=== PATIENT | female | born 2000 | race Caucasian/White ===

== ENCOUNTER 2024-09-07 13:50 | Emergency (ER) | payer MEDICAID, SELFPAY ==
[2024-09-07 13:51] VITALS: BMI 37.5
[2024-09-07 14:28] VITALS: BP 143/99; PULSE 87; RESP 18; TEMP 36.9; O2SAT 99
--- NOTE | 2024-09-07 14:48 | PD.EDADULT ---
ED General RME/HPI General Chief complaint: General Adult/Misc Complain Stated complaint: NEEDS LAB FOR THYROID, CALCIUM LEVEL LOW Time Seen by Provider: 09/07/24 14:34 Source: patient Arrival date/time: 09/07/24 13:50 24-year-old female presents to the emergency department and request for lab draw due to possible low calcium. Patient has a lab slip with her that was given by her PCP patient was unable to get her lab drawn outpatient here for lab draw. Denies any other concerns Related Data Home Medications ?Medication ?Instructions ?Recorded ?Confirmed amitriptyline 25 mg tablet 25 mg PO HS 01/31/24 01/31/24 Held on 01/31/24. Instructions: Resume on 02/01/24. cyclobenzaprine 5 mg tablet 5 mg PO TID 01/31/24 01/31/24 Held on 01/31/24. Instructions: Resume on 02/01/24. furosemide 40 mg tablet 40 mg PO QDAY 01/31/24 01/31/24 gabapentin 300 mg capsule 300 mg PO BID 01/31/24 01/31/24 Held on 01/31/24. Instructions: Resume on 02/01/24. hydroxyzine HCl 25 mg tablet 25 mg PO TID 01/31/24 01/31/24 lamotrigine 25 mg tablet,extended 25 mg PO HS 01/31/24 01/31/24 release 24 hr meloxicam 15 mg tablet 15 mg PO QDAY 01/31/24 01/31/24 ondansetron HCl 8 mg tablet 8 mg PO QID 01/31/24 01/31/24 pantoprazole 40 mg tablet,delayed 40 mg PO QDAY 01/31/24 01/31/24 release (Protonix) tranexamic acid 650 mg tablet 1,300 mg PO TID 01/31/24 01/31/24 Previous Rx's ?Medication ?Instructions ?Recorded methotrexate (PF) 30 mg/0.6 mL 94 mg (1.88 mL) subcut .once #1.88 05/02/24 subcutaneous auto-injector mL methotrexate sodium 25 mg/mL 94 mg (3.76 mL) subcut .once #10 mL 05/02/24 injection solution methotrexate sodium 25 mg/mL 94 mg (3.76 mL) subcut .once #3.76 05/03/24 injection solution mL Allergies Allergy/AdvReac Type Severity Reaction Status Date / Time Gadolinium-Containing Allergy Severe Itching Verified 09/07/24 13:53 Contrast Medi adhesive tape Allergy Intermediate REDNESS, Verified 09/07/24 13:53 ITCHING, SKIN BLISTERS latex Allergy Intermediate REDNESS,ITCHING,THROAT Verified 09/07/24 13:53 SWELLING,DIFF. BREATHING Penicillins Allergy Unknown Verified 09/07/24 13:53 Sulfa (Sulfonamide Allergy Swelling Verified 09/07/24 13:53 Antibiotics) of Lip/Tongue/Throat Review of Systems Review of Systems Systems Reviewed: All systems reviewed, normal except as documented Narrative Review of Systems: Gen: No fever, no chills, no weight loss EYES: No discharge, no visual changes, no pain HEENT: No ear pain, no congestion, no sore throat PULM: No shortness of breath, no cough, no congestion CV: No chest pain, no dyspnea on exertion, no palpitations GI: No nausea, no vomiting, no diarrhea, no pain, no constipation : No frequency, no urgency,? no dysuria Musc/skel: No joint pain, no back pain Skin: No rash? ED Exam Narrative Physical exam: General: Sittiing in Exam table in no acute distress, answering questions appropriately HENT: normocephalic, atraumatic, EOMI, PERRLA, moist mucous membranes Chest: chest wall is nontender Cardiac: regular rate and rhythm, normal S1 and S2, no murmurs, rubs, or gallops, capillary refill ?2 seconds Pulmonary: clear to auscultation bilaterally, no wheezing, crackles, or rhonchi Abdominal: active bowel sounds, soft, nontender, nondistended Neuro: A&OX3, CN II-XII intact, sensation grossly intact bilaterally in UE and LE. Skin: no rashes, no ecchymosis Ext: no lower extremity edema Course Quality Measures none Orders Category Date Time Status CBC Stat Lab 09/07/24 15:11 Completed CMP [Comprehensive Metabolic Panel] Stat Lab 09/07/24 15:11 Completed Free T4 (Free Thyroxine) Stat Lab 09/07/24 15:11 Completed Phosphorous Stat Lab 09/07/24 15:11 Completed TSH [Thyroid Stimulating Hormone] Stat Lab 09/07/24 15:11 Completed Vital Signs Vital signs: Vital Signs Temperature 98.4 F 09/07/24 14:28 Pulse Rate 87 09/07/24 14:28 Respiratory Rate 18 09/07/24 14:28 Blood Pressure 143/99 H 09/07/24 14:28 Pulse Oximetry (%) 99 09/07/24 14:28 Oxygen Delivery Method Room Air 09/07/24 14:28 [facility] Patient data External records reviewed:: [facility] previous records Clinical information provided by:: patient Social determinants that could affect healthcare access:: none Patient has the following chronic illnesses:: none How is presenting disease/condition affected by chronic disease/condition?: no chronic disease Evaluation data The following diagnostics were reviewed and interpreted by me:: lab results Lab and/or radiology exams considered but not ordered:: none Interpretation Summary: No severe hypoglycemia patient labs handed to patient she will follow-up with her director of clinical trials. Medications Medications considered but not ordered:: none Medication administrations:: none Consultations Consultation(s) initiated? (list below): No Diagnosis Differential Diagnosis ED Complaint MDM: Hypocalcemia, lecture light imbalance, hypothyroidism. Most likely diagnosis given after review of the tests above:: Routine lab draw Admission Indicated Admission indicated?: not indicated Explain why admission is indicated or not indicated:: none Admission Request Was there a request for admission?: No Disposition Plan Disposition Plan: Discharge Discharge Attestation Discharge Attestation: The patient and all family members were given an opportunity to ask questions and understood the discharge instructions. Discharge instructions specifically effects, indications for sooner follow up or return to the emergency department, and the expected course of current diagnosis. Patient condition: Stable Medical Decision Making Differential Diagnosis Differential Diagnosis: Hypocalcemia, lecture light imbalance, hypothyroidism. Lab Data 09/07/24 15:11 09/07/24 15:11 Labs: Lab Results 09/07/24 Range/Units 15:11 WBC 6.3 (3.6-11.0) Thou/mm3 RBC 4.00 (4.00-5.20) Miln/mm3 Hgb 10.2 L (12.0-16.0) g/dL Hct 32.2 L (36.0-46.0) % MCV 81 (80-100) fL MCH 25.5 (25.0-35.0) pg MCHC 31.7 (31.0-37.0) g/dl RDW Std Deviation 42.2 (36.4-46.3) fL Plt Count 205 (140-440) Thou/mm3 Neut % (Auto) 61 (37-80) % Lymph % (Auto) 30 (10-50) % Russell % (Auto) 6 (0-12) % Eos % (Auto) 2 (0-10) % Baso % (Auto) 0 (0-2.5) % Neut # (Auto) 3.9 (1.8-7.7) Thou/mm3 Lymph # (Auto) 1.9 (1.0-4.8) Thou/mm3 Russell # (Auto) 0.4 (0.0-0.8) Thou/mm3 Eos # (Auto) 0.1 (0.0-0.5) Thou/mm3 Baso # (Auto) 0.0 (0.0-0.2) Thou/mm3 Immature Gran # (Auto) 0.02 H (0.00-0.00) Thou/mm3 Absolute Nucleated RBC 0.00 (0.00-0.00) Thou/mm3 Immature Gran % 0 (0-0) % Nucleated RBC % 0 (0) /100 WBC Sodium 141 (136-145) mMol/L Potassium 4.2 (3.4-5.1) mMol/L Chloride 108 H (98-107) mMol/L Carbon Dioxide 24.7 (20.0-31.0) mMol/L Anion Gap 8 (7-16) BUN 14 (9-23) mg/dL Creatinine 0.7 (0.6-1.3) mg/dL Estim Creat Clear Calc 129.3 (>60) mL/min eGFR > 60 (60 - ) See Note BUN/Creatinine Ratio 20 (12-20) Ratio Glucose 84 (74-106) mg/dL Calculated Osmolality 280 (275-295) Calcium 8.2 L (8.3-10.6) mg/dL Corrected Calcium 8.2 L (8.5-10.1) mg/dL Phosphorus 4.5 (2.4-5.1) mg/dL Total Bilirubin 0.2 L (0.3-1.2) mg/dL AST 14 (0-34) U/L ALT 14 (10-49) U/L Alkaline Phosphatase 58 (46-116) U/L Total Protein 7.0 (5.7-8.2) gm/dL Albumin 4.4 (3.5-5.0) gm/dL Globulin 2.6 (2.3-3.5) gm/dL Albumin/Globulin Ratio 1.7 (1.2-2.2) TSH 0.80 (0.55-4.78) uIU/mL Free T4 1.50 (0.89-1.76) ng/dL Discharge Plan Plan Patient Disposition: HOME (Self Care) Patient condition on transfer: Stable Prescriptions/Referrals Prescriptions/Med Rec: No Action furosemide 40 mg tablet 40 mg PO QDAY Patient Comments: TAKE 1 TABLET BY MOUTH ONCE DAILY meloxicam 15 mg tablet 15 mg PO QDAY Patient Comments: TAKE 1 TABLET BY MOUTH ONCE DAILY NEEDED FOR PAIN (ALSO TAKE DURING YOUR PERIOD TO MAKE IT TECHNICAL SERVICES ASSISTANT) amitriptyline 25 mg tablet 25 mg PO HS Patient Comments: TAKE 1 TABLET BY MOUTH ONCE DAILY gabapentin 300 mg capsule 300 mg PO BID Patient Comments: TAKE 1 CAPSULE BY MOUTH IN THE MORNING ,1 CAPSULE AT NOON, AND 2 CAPSULES AT BEDTIME hydroxyzine HCl 25 mg tablet 25 mg PO TID Patient Comments: TAKE 1 TABLET BY MOUTH THREE TIMES DAILY NEEDED FOR ITCHING OR SLEEPING DIFFICULTIES cyclobenzaprine 5 mg tablet 5 mg PO TID Patient Comments: TAKE 1 TO 2 TABLETS BY MOUTH THREE TIMES DAILY NEEDED FOR MUSCLE RELAXATION lamotrigine 25 mg tablet extended release 24hr 25 mg PO HS Patient Comments: TAKE 1 TABLET BY MOUTH ONCE DAILY tranexamic acid 650 mg Tablet 1,300 mg PO TID pantoprazole [Protonix] 40 mg tablet,delayed release (DR/EC) 40 mg PO QDAY ondansetron HCl 8 mg Tablet 8 mg PO QID methotrexate (PF) 30 mg/0.6 mL auto-injector 94 mg subcut .once Qty: 1.88 0RF Rx Instructions: pls give IM methotrexate sodium 25 mg/mL solution 94 mg subcut .once Qty: 10 0RF Rx Instructions: Give IM methotrexate sodium 25 mg/mL solution 94 mg subcut .once Qty: 3.76 0RF Rx Instructions: pls give IM Referrals: Angel Menard MD [Primary Care Provider] - In 1 week Problem List Clinical Impression: Routine lab draw, Hypocalcemia Patient/Caregiver Discharge Instructions Discharge Activity: activity as tolerated Education Materials: Discharge Instructions for ..., ED Hypocalcemia (Adult) Additional Instructions: - Your labs were drawn You received a copy. Your calcium is point low -folLow up with your primary doctor Return to emergency department this any worsening symptoms any condition Print Language: Maltese Stand Alone Forms: [employer] Award Info., Patient Portal Info Letter PA/CHEMICAL SALES REPRESENTATIVE Supervising Physician PA/CHEMICAL SALES REPRESENTATIVE Supervising Physician: Dr. Morin
[2024-09-07 15:34] LABS: Basophils % (Auto) 0 % (0-2.5); Eosinophils # (Auto) 0.1 Thou/mm3 (0.0-0.5); Eosinophils % (Auto) 2 % (0-10); Hematocrit 32.2 % (36.0-46.0); Hemoglobin 10.2 g/dL (12.0-16.0); Immature Granulocytes % (Auto) 0 % (0-0); Immature Granulocytes Auto 0.02 Thou/mm3 (0.00-0.00); Lymphocytes # (Auto) 1.9 Thou/mm3 (1.0-4.8); Lymphocytes % (Auto) 30 % (10-50); Mean Corpuscular HGB Conc 31.7 g/dl (31.0-37.0); Mean Corpuscular Hemoglobin 25.5 pg (25.0-35.0); Mean Corpuscular Volume 81 fL (80-100); Monocytes # (Auto) 0.4 Thou/mm3 (0.0-0.8); Monocytes % (Auto) 6 % (0-12); Neutrophils # (Auto) 3.9 Thou/mm3 (1.8-7.7); Neutrophils % (Auto) 61 % (37-80); Nucleated Red Blood Cell % 0 /100 WBC (0); Platelet Count 205 Thou/mm3 (140-440); RDW Standard Deviation 42.2 fL (36.4-46.3); White Blood Count 6.3 Thou/mm3 (3.6-11.0)
[2024-09-07 15:55] LABS: Alanine Aminotransferase 14 U/L (10-49); Albumin, Serum 4.4 gm/dL (3.5-5.0); Albumin/Globulin Ratio 1.7 (1.2-2.2); Alkaline Phosphatase 58 U/L (46-116); Anion Gap 8 (7-16); Aspartate Amino Transferase 14 U/L (0-34); BUN/Creatinine Ratio 20 Ratio (12-20); Bilirubin,Total 0.2 mg/dL (0.3-1.2); Blood Urea Nitrogen 14 mg/dL (9-23); Calcium 8.2 mg/dL (8.3-10.6); Calcium (Corrected) 8.2 mg/dL (8.5-10.1); Carbon Dioxide 24.7 mMol/L (20.0-31.0); Chloride 108 mMol/L (98-107); Creatinine (Component) 0.7 mg/dL (0.6-1.3); Estimated Creatinine Clearance 129.3 mL/min (>60); Globulin 2.6 gm/dL (2.3-3.5); Glucose 84 mg/dL (74-106); Osmolality,Calculated 280 (275-295); Phosphorous 4.5 mg/dL (2.4-5.1); Potassium 4.2 mMol/L (3.4-5.1); Sodium 141 mMol/L (136-145); eGFR > 60 See Note
== END 2024-09-07 16:37 | disposition home or self-care (01) ==
PROVIDERS: Nurse Practitioner Primary Care; Emergency Provider Emergency Medicine; PCP Obstetrics & Gynecology
DX: E83.51 Hypocalcemia (principal)
CPT/HCPCS: 36415; 80053; 84100; 84439; 84443; 85025; 99283

== ENCOUNTER 2024-09-19 18:03 | Emergency (ER) | payer MEDICAID, SELFPAY ==
--- NOTE | 2024-09-19 18:30 | EKG_ITS ---
[facility] Test Date: 2024-09-19 Pat Name: OSVALDO MANNING Department: Room: - Gender: Female Calibration Laboratory Technician: : 2000 Requested By: Santy Fierro Order Number: [id number] Reading MD: Santy Fierro Measurements Intervals [place] Rate: 94 P: 57 WA: 131 QRS: 40 QRSD: 88 T: 41 QT: 376 QTc: 472 Interpretive Statements SINUS RHYTHM No previous ECG available for comparison /store/S0/[id number]/[id number].pdf
[2024-09-19 19:07] VITALS: BP 146/79; PULSE 95; RESP 18; TEMP 36.7; O2SAT 99; BMI 38.4
--- NOTE | 2024-09-19 19:24 | XR_ITS ---
Examination: CT brain head without contrast. 2-D sagittal coronal reconstructions Date and time of exam:September 19, 2024 10:51 PM Indications: Syncopal episode today CTDI: vol (mGy):48.9 DLP: (mGycm):932 Technique: Multiple CT axial sections of the brain have been obtained, 5 mm slice thickness. Contrast has not been administered. 2-D sagittal, coronal reconstructions have been obtained Low dose protocols were performed. One or more of the following dose reduction techniques were used; automated exposure control, adjustment of the mA and/or KV according to patient size, use of iterative reconstruction technique. Findings: No significant ventricular enlargement. Intra-axial or extra-axial hemorrhage density is not seen. No mass effect or midline shift Basal cisterns are not remarkable. Fourth ventricle is midline. Cranial vault intact. Impression: Negative for acute hemorrhage, mass effect or midline shift Advise clinical correlation follow-up accordingly
--- NOTE | 2024-09-19 19:24 | XR_ITS ---
Examination: PA chest single view Technique: Upright PA chest single view Exam date and time: September 19, 2024 1749 hrs. Indication: Syncopal episode today. Findings: Normal heart size. Lungs are clear. The osseous structures are intact Impression: No active disease
--- NOTE | 2024-09-19 19:24 | XR_ITS ---
Examination: CT brain head with contrast. 2-D sagittal coronal reconstructions were 7.9 Date and time of exam:September 19, 2024 10:51 PM Indications: Syncopal episodes today CTDI: vol (mGy): 47.9 DLP: (mGycm):982 Technique: Multiple CT axial sections of the brain have been obtained, 5 mm slice thickness. Contrast has not been administered. 2-D sagittal, coronal reconstructions have been obtained Low dose protocols were performed. One or more of the following dose reduction techniques were used; automated exposure control, adjustment of the mA and/or KV according to patient size, use of iterative reconstruction technique. Findings: No significant ventricular enlargement. Intra-axial or extra-axial hemorrhage density is not seen. No mass effect or midline shift Basal cisterns are not remarkable. Fourth ventricle is midline. Cranial vault intact. Right maxillary sinusitis No abnormal enhancement Impression: Negative for acute hemorrhage, mass effect or midline shift
--- NOTE | 2024-09-19 19:25 | EDRME_ITS ---
Rapid Medical Screening Exam RME Arrival date/time: 09/19/24 18:03 24F with extensive PMH including undiagnosed syncopal disorder, thyroid cancer (resection done 2 weeks ago), PCOS and psych presents to ED with 15+ syncopal episodes per day since she had her thyroid surgery. Patient states she has had this syncopal disorder prior to surgery but they only occurred 1-2x per day vs 15+. Patient was supposed to get CT head w/wo contrast today outpatient, but PCP (Dr. Menard) who ordered it filled out the prior auth wrong so fingerprint technician refused to do it. Note, patient has had MRI w/ contrast before and is fine as long as steroids are given prior to contrast injection. Patient still wants CT done today even though she was advised MRI would like be more helpful. Separately, patient notes she's had a sore throat for several days. Patient was told she has strep 1 month ago w/o any testing. Chief Complaint: Syncope / Near Syncope Vital signs: Vital Signs Temperature 98.1 F 09/19/24 19:07 Pulse Rate 95 09/19/24 19:07 Respiratory Rate 18 09/19/24 19:07 Blood Pressure 146/79 H 09/19/24 19:07 Pulse Oximetry (%) 99 09/19/24 19:07 Oxygen Delivery Method Room Air 09/19/24 19:07
[2024-09-19 20:15] LABS: Basophils % (Auto) 0 % (0-2.5); Eosinophils # (Auto) 0.1 Thou/mm3 (0.0-0.5); Eosinophils % (Auto) 1 % (0-10); Hematocrit 32.3 % (36.0-46.0); Hemoglobin 10.5 g/dL (12.0-16.0); Immature Granulocytes % (Auto) 0 % (0-0); Immature Granulocytes Auto 0.01 Thou/mm3 (0.00-0.00); Lymphocytes # (Auto) 2.4 Thou/mm3 (1.0-4.8); Lymphocytes % (Auto) 27 % (10-50); Mean Corpuscular HGB Conc 32.5 g/dl (31.0-37.0); Mean Corpuscular Hemoglobin 25.6 pg (25.0-35.0); Mean Corpuscular Volume 79 fL (80-100); Monocytes # (Auto) 0.5 Thou/mm3 (0.0-0.8); Monocytes % (Auto) 6 % (0-12); Neutrophils # (Auto) 5.9 Thou/mm3 (1.8-7.7); Neutrophils % (Auto) 66 % (37-80); Nucleated Red Blood Cell % 0 /100 WBC (0); Platelet Count 201 Thou/mm3 (140-440)
[2024-09-19 20:28] LABS: Parathyroid Hormone Intact 22.8 pg/ml (18.5-88.0)
[2024-09-19 20:41] LABS: Alanine Aminotransferase 13 U/L (10-49); Albumin, Serum 4.5 gm/dL (3.5-5.0); Albumin/Globulin Ratio 1.7 (1.2-2.2); Alkaline Phosphatase 68 U/L (46-116); Anion Gap 8 (7-16); Aspartate Amino Transferase 17 U/L (0-34); BUN/Creatinine Ratio 20 Ratio (12-20); Bilirubin,Total 0.3 mg/dL (0.3-1.2); Blood Urea Nitrogen 12 mg/dL (9-23); Calcium 7.6 mg/dL (8.3-10.6); Calcium (Corrected) 7.6 mg/dL (8.5-10.1); Carbon Dioxide 25.4 mMol/L (20.0-31.0); Chloride 107 mMol/L (98-107); Creatinine (Component) 0.6 mg/dL (0.6-1.3); Estimated Creatinine Clearance 152.9 mL/min (>60); Globulin 2.7 gm/dL (2.3-3.5); Glucose 90 mg/dL (74-106); Magnesium 1.8 mg/dL (1.6-2.6); Osmolality,Calculated 279 (275-295); Potassium 3.3 mMol/L (3.4-5.1); Sodium 140 mMol/L (136-145); Total Protein 7.2 gm/dL (5.7-8.2); Troponin I < 0.002 ng/mL (0.0-0.045); eGFR > 60 See Note
[2024-09-19 21:39] LABS: Strep A Rapid Negative (Negative)
[2024-09-19 22:02] LABS: Collection Type, Urine Clean Catch
[2024-09-19 22:42] LABS: Bilirubin,Urine Negative (Negative); Blood,Urine Negative (Negative); Clarity,Urine Clear (Clear/Hazy); Color,Urine Yellow (Lt Yel-Yel); Glucose, Urine Negative (Negative); Ketones,Urine Negative (Negative); Leukocyte Esterase,Urine Positive (Negative); Nitrite,Urine Negative (Negative); PH,Urine 6.5 (5.0-7.0); Protein,Urine 1+ (Neg - Trace); RBC,Urine 2 /hpf (0-3); Specific Gravity,Urine 1.034 (1.001-1.035); Squamous Epithelial Cell,Urine 14 /hpf (0-5); WBC,Urine 3 /hpf (0-5)
[2024-09-19 22:44] LABS: HCG Qualitative,Urine Negative
[2024-09-19 22:50] LABS: Amphetamine/Methamp Scrn,U Negative (Negative); Barbiturate Screen,Urine Negative (Negative); Benzodiazepines Screen,Urine Negative (Negative); Benzoylecgonine Screen, Ur Negative (Negative); Fentanyl Screen,Urine Negative (Negative); Opiate Screen,Urine Positive (Negative); THC Screen,Urine Positive (Negative)
--- NOTE | 2024-09-20 00:47 | PD.EDSYNC ---
ED Syncope RME/HPI General Chief Complaint: Syncope / Near Syncope Stated Complaint: Syncope today X 15 Arrival date/time: 09/19/24 18:03 RME / HPI RME / HPI narrative: 09/19/24 18:03 24F with extensive PMH including undiagnosed syncopal disorder, thyroid cancer (resection done 2 weeks ago), PCOS and psych presents to ED with 15+ syncopal episodes per day since she had her thyroid surgery. Patient states she has had this syncopal disorder prior to surgery but they only occurred 1-2x per day vs 15+. Patient was supposed to get CT head w/wo contrast today outpatient, but PCP (Dr. Menard) who ordered it filled out the prior auth wrong so business technology architect refused to do it. Note, patient has had MRI w/ contrast before and is fine as long as steroids are given prior to contrast injection. Patient still wants CT done today even though she was advised MRI would like be more helpful. Separately, patient notes she's had a sore throat for several days. Patient was told she has strep 1 month ago w/o any testing. Dr. Stoddard?s Main ED Evaluation: 24yo female with a history of thyroid CA s/p resection presents to the ED for a chief complaint of syncope. Patient states she used to have 2-3 syncopal episodes a week prior to getting her thyroid removed 2 weeks ago, but endorses she has been having 15-20 episodes per day since the surgery. Patient states she zones out and does not know how much time passes . She denies any falls or injuries. She denies any other associated symptoms. Related Data Home Medications ?Medication ?Instructions ?Recorded ?Confirmed amitriptyline 25 mg tablet 25 mg PO HS 01/31/24 01/31/24 Held on 01/31/24. Instructions: Resume on 02/01/24. cyclobenzaprine 5 mg tablet 5 mg PO TID 01/31/24 01/31/24 Held on 01/31/24. Instructions: Resume on 02/01/24. furosemide 40 mg tablet 40 mg PO QDAY 01/31/24 01/31/24 gabapentin 300 mg capsule 300 mg PO BID 01/31/24 01/31/24 Held on 01/31/24. Instructions: Resume on 02/01/24. hydroxyzine HCl 25 mg tablet 25 mg PO TID 01/31/24 01/31/24 lamotrigine 25 mg tablet,extended 25 mg PO HS 01/31/24 01/31/24 release 24 hr meloxicam 15 mg tablet 15 mg PO QDAY 01/31/24 01/31/24 ondansetron HCl 8 mg tablet 8 mg PO QID 01/31/24 01/31/24 pantoprazole 40 mg tablet,delayed 40 mg PO QDAY 01/31/24 01/31/24 release (Protonix) tranexamic acid 650 mg tablet 1,300 mg PO TID 01/31/24 01/31/24 Previous Rx's ?Medication ?Instructions ?Recorded methotrexate (PF) 30 mg/0.6 mL 94 mg (1.88 mL) subcut .once #1.88 05/02/24 subcutaneous auto-injector mL methotrexate sodium 25 mg/mL 94 mg (3.76 mL) subcut .once #10 mL 05/02/24 injection solution methotrexate sodium 25 mg/mL 94 mg (3.76 mL) subcut .once #3.76 05/03/24 injection solution mL Allergies Allergy/AdvReac Type Severity Reaction Status Date / Time Gadolinium-Containing Allergy Severe Itching Verified 09/07/24 13:53 Contrast Medi adhesive tape Allergy Intermediate REDNESS, Verified 09/07/24 13:53 ITCHING, SKIN BLISTERS latex Allergy Intermediate REDNESS,ITCHING,THROAT Verified 09/07/24 13:53 SWELLING,DIFF. BREATHING Penicillins Allergy Unknown Verified 09/07/24 13:53 Sulfa (Sulfonamide Allergy Swelling Verified 09/07/24 13:53 Antibiotics) of Lip/Tongue/Throat Review of Systems Review of Systems Systems Reviewed: All systems reviewed, normal except as documented Past Medical History Past Medical History CARDIAC: Positive Hypercholesterolemia (CONTROL WITH DIET CHANGES) and Hypertension (CONTROL WITH DIET CHANGES); Negative Cardiac Disorders or Congestive Heart Failure RESPIRATORY: Negative Chronic Obstructive Pulmonary Disease (COPD) or Asthma GASTROINTESTINAL: Positive Gastrointestinal Disorders (gastroparesis), Hiatal Hernia and Gastroesophageal Reflux Disease GENITOURINARY: Positive Kidney Stones (ALSO HX OF BLADDER STONES); Negative Renal Disease REPRODUCTIVE: Positive Previous Pregnancies MUSCULOSKELETAL: Positive Arthritis and Fibromyalgia ENDOCRINE: Positive Endocrine Disorders (hashimotos); Negative Diabetes Mellitus Type 1 or Diabetes Mellitus Type 2 HEMATOLOGIC: Positive Blood Disorders ([place] DISEASE); Negative Sickle Cell Disease PSYCHO/SOCIAL: Positive Depression and Anxiety OTHER HISTORY: Positive Hospitalization (october 2023); Negative Down Syndrome, Developmental Delay, Falls, Blood Transfusions or Anesthesia Reactions Family History FAMILY HISTORY: Positive Family Cancer (PATERNAL GRANDFATHER SKIN CA) Surgical History SURGICAL: Positive Section (october 2023) Social History SMOKING STATUS: Never smoker ED Exam Narrative Physical exam: GENERAL APPEARANCE: alert and oriented x 4, well-developed, well-nourished, no acute distress VITALS: All vitals were reviewed and the pulse ox is 99% on room air, which is normal according to my interpretation. HEENT: Normocephalic, atraumatic; pupils equal, round, reactive to light; EOMI; mucous membranes pink, moist; oropharynx clear NECK: Supple LUNGS: CTABL; no wheezes, no rales, no rhonchi HEART: Regular rate, regular rhythm; normal S1, S2; no murmurs ABDOMEN: non distended; normal BS; soft, no tenderness, no guarding, no rebound; no masses, no organomegaly, no hernia BACK: no CVA tenderness EXTREMITIES: atraumatic; no edema NEUROLOGIC: awake; alert and oriented x4; cranial nerves II-XII grossly intact; no focal sensory or motor deficits PSYCHIATRIC: appropriate mood and affect SKIN: warm, dry, normal color; no rashes Course Course Course Narrative: CXR is ordered for determining the etiology of syncope. Quality Measures none Orders Category Date Time Status CT Screening NOW Care 09/19/24 19:25 Active EKG (ED ONLY) *Do not use* NOW Care 09/19/24 18:30 Completed Insert IV NOW Care 09/19/24 19:[address] head/brain w con Stat Exams 09/19/24 19:[address] head/brain wo con Stat Exams 09/19/24 19:24 Completed EKG (ED Only) Stat Exams 09/19/24 18:30 Draft XR chest 1V portable Stat Exams 09/19/24 19:24 Completed CBC Stat Lab 09/19/24 20:03 Completed Comprehensive Metabolic Panel Stat Lab 09/19/24 20:03 Completed Drug Screen,Urine Stat Lab 09/19/24 21:50 Completed HCG Qualitative,Urine Stat Lab 09/19/24 21:50 Completed Magnesium Stat Lab 09/19/24 20:03 Completed PTH [Parathyroid Hormone Intact] Stat Lab 09/19/24 20:03 Completed Strep A Rapid Stat Lab 09/19/24 19:46 Completed TSH [Thyroid Stimulating Hormone] Stat Lab 09/19/24 20:03 Completed Troponin I Stat Lab 09/19/24 20:03 Completed Urinalysis Stat Lab 09/19/24 21:50 Completed Vital Signs Vital signs: Vital Signs Temperature 98.1 F 09/19/24 19:07 Pulse Rate 95 09/19/24 19:07 Respiratory Rate 18 09/19/24 19:07 Blood Pressure 146/79 H 09/19/24 19:07 Pulse Oximetry (%) 99 09/19/24 19:07 Oxygen Delivery Method Room Air 09/19/24 19:07 Syncope MDM Narrative MDM Narrative:: Scribe Attestation: 09/20/24 - Genesis Salvador am scribing for and in the presence of Dr. Stoddard. Patient data External records reviewed:: [facility] previous records (Per chart review, patient was seen here on 09/07/24 for hypocalcemia.) Clinical information provided by:: patient Social determinants that could affect healthcare access:: none Patient has the following chronic illnesses:: thyroid CA s/p resection How is presenting disease/condition affected by chronic disease/condition?: uneffected by Evaluation data The following diagnostics were reviewed and interpreted by me:: lab results, radiology exam(s) and EKG tracing(s) Lab and/or radiology exams considered but not ordered:: none Interpretation Summary: CBC is normal, Potassium is 3.3, troponin is normal, TSH is normal, UA is unremarkable, HCG is negative, UDS is positive for opiates and marijuana, according to my interpretation. EKG done at 1901, NSR, rate of 94, normal axis, no ectopy, no acute ischemia, according to my interpretation. ------ [facility] Report Signed Patient: OSVALDO MANNING [facility]. Record#: [id number] Birthdate: 2000 Age/Sex: 24 / F [facility] Attending Dr: Ordering Physician: Santy Fierro PA-C Date of Service: 09/19/24 Procedure(s): XR chest 1V portable Accession Number(s): [id number] cc: Scotty Gay MD; Angel Menard MD; Santy Fierro PA-C~ Examination: PA chest single view Technique: Upright PA chest single view Exam date and time: September 19, 2024 1749 hrs. Indication: Syncopal episode today. Findings: Normal heart size. Lungs are clear. The osseous structures are intact Impression: No active disease Dictated By: Scotty Gay MD Signed By: <Electronically signed by Scotty Gay MD in OV> 09/19/242046 [facility] Report Signed Patient: OSVALDO MANNING Record#: [id number] Birthdate: 2000 Age/Sex: 24 / F Location: [facility] Attending Dr: Ordering Physician: Santy Fierro PA-C Date of Service: 09/19/24 Procedure(s): CT head/brain w con Accession Number(s): [id number] cc: Scotty Gay MD; Angel Menard MD; Santy Fierro PA-C~ Examination: CT brain head with contrast. 2-D sagittal coronal reconstructions were 7.9 Date and time of exam:September 19, 2024 10:51 PM Indications: Syncopal episodes today CTDI: vol (mGy): 47.9 DLP: (mGycm):982 Technique: Multiple CT axial sections of the brain have been obtained, 5 mm slice thickness. Contrast has not been administered. 2-D sagittal, coronal reconstructions have been obtained Low dose protocols were performed. One or more of the following dose reduction techniques were used; automated exposure control, adjustment of the mA and/or KV according to patient size, use of iterative reconstruction technique. Findings: No significant ventricular enlargement. Intra-axial or extra-axial hemorrhage density is not seen. No mass effect or midline shift Basal cisterns are not remarkable. Fourth ventricle is midline. Cranial vault intact. Right maxillary sinusitis No abnormal enhancement Impression: Negative for acute hemorrhage, mass effect or midline shift Dictated By: Scotty Gay MD Signed By: <Electronically signed by Scotty Gay MD in OV> 09/19/24 2355 [facility] Signed Patient: OSVALDO MANNING. Record#: [id number] Birthdate: 2000 Age/Sex: 24 / F Location: [facility] Attending Dr: Ordering Physician: Santy Fierro PA-C Date of Service: 09/19/24 Procedure(s): CT head/brain wo con Accession Number(s): [id number] cc: Scotty Gay MD; Angel Menard MD; Santy Fierro PA-C~ Examination: CT brain head without contrast. 2-D sagittal coronal reconstructions Date and time of exam:September 19, 2024 10:51 PM Indications: Syncopal episode today CTDI: vol (mGy):48.9 DLP: (mGycm):932 Technique: Multiple CT axial sections of the brain have been obtained, 5 mm slice thickness. Contrast has not been administered. 2-D sagittal, coronal reconstructions have been obtained Low dose protocols were performed. One or more of the following dose reduction techniques were used; automated exposure control, adjustment of the mA and/or KV according to patient size, use of iterative reconstruction technique. Findings: No significant ventricular enlargement. Intra-axial or extra-axial hemorrhage density is not seen. No mass effect or midline shift Basal cisterns are not remarkable. Fourth ventricle is midline. Cranial vault intact. Impression: Negative for acute hemorrhage, mass effect or midline shift Advise clinical correlation follow-up accordingly Dictated By: Scotty Gay MD Signed By: <Electronically signed by Scotty Gay MD in OV> 09/19/24 9392 Medications / Prescriptions Medications or Prescriptions considered but not ordered:: none Medication administrations:: noen Consultations Consultation(s) initiated? (list below): No Diagnosis Syncope Differential Diagnosis: other (hypocalcemia, hypokalemia, hyperkalemia, hypomagnesemia) Most likely diagnosis given after review of the tests above:: see below Admission Indicated Admission indicated?: not indicated Admission Request Was there a request for admission?: No Disposition Plan Disposition Plan: Discharge Discharge Attestation Discharge Attestation: The patient and all family members were given an opportunity to ask questions and understood the discharge instructions. Discharge instructions specifically effects, indications for sooner follow up or return to the emergency department, and the expected course of current diagnosis. Patient condition: Stable Discharge Plan Plan Patient Disposition: HOME (Self Care) Disposition Comment: Stable for discharge Patient condition on transfer: Stable Prescriptions/Referrals Prescriptions/Med Rec: No Action furosemide 40 mg tablet 40 mg PO QDAY Patient Comments: TAKE 1 TABLET BY MOUTH ONCE DAILY meloxicam 15 mg tablet 15 mg PO QDAY Patient Comments: TAKE 1 TABLET BY MOUTH ONCE DAILY NEEDED FOR PAIN (ALSO TAKE DURING YOUR PERIOD TO MAKE IT OPTICAL LABORATORY TECHNICIAN) amitriptyline 25 mg tablet 25 mg PO HS Patient Comments: TAKE 1 TABLET BY MOUTH ONCE DAILY gabapentin 300 mg capsule 300 mg PO BID Patient Comments: TAKE 1 CAPSULE BY MOUTH IN THE MORNING ,1 CAPSULE AT NOON, AND 2 CAPSULES AT BEDTIME hydroxyzine HCl 25 mg tablet 25 mg PO TID Patient Comments: TAKE 1 TABLET BY MOUTH THREE TIMES DAILY NEEDED FOR ITCHING OR SLEEPING DIFFICULTIES cyclobenzaprine 5 mg tablet 5 mg PO TID Patient Comments: TAKE 1 TO 2 TABLETS BY MOUTH THREE TIMES DAILY NEEDED FOR MUSCLE RELAXATION lamotrigine 25 mg tablet extended release 24hr 25 mg PO HS Patient Comments: TAKE 1 TABLET BY MOUTH ONCE DAILY tranexamic acid 650 mg Tablet 1,300 mg PO TID pantoprazole [Protonix] 40 mg tablet,delayed release (DR/EC) 40 mg PO QDAY ondansetron HCl 8 mg Tablet 8 mg PO QID methotrexate (PF) 30 mg/0.6 mL auto-injector 94 mg subcut .once Qty: 1.88 0RF Rx Instructions: pls give IM methotrexate sodium 25 mg/mL solution 94 mg subcut .once Qty: 10 0RF Rx Instructions: Give IM methotrexate sodium 25 mg/mL solution 94 mg subcut .once Qty: 3.76 0RF Rx Instructions: pls give IM Referrals: Angel Menard MD [Primary Care Provider] - In 1 week Problem List Clinical Impression: Syncope Patient/Caregiver Discharge Instructions Discharge Activity: activity as tolerated Education Materials: Causes of Syncope, Diagnosing Syncope, ED Fainting, Uncertain Cause Additional Instructions: Please return to the emergency department for any worsening or any further medical problems Otherwise you should follow-up with your primary care doctor within the next several days Print Language: Slovenian Stand Alone Forms: [employer] Award Info., Patient Portal Info Letter
== END 2024-09-20 01:14 | disposition home or self-care (01) ==
PROVIDERS: Physician Assistant; Emergency Provider Emergency Medicine; PCP Obstetrics & Gynecology
DX: R55 Syncope and collapse (principal); J02.9 Acute pharyngitis, unspecified; C73 Malignant neoplasm of thyroid gland; I10 Essential (primary) hypertension; Z98.890 Other specified postprocedural states
CPT/HCPCS: 36415; 70450; 70460; 71045; 80053; 80307; 81001; 81025; 83735; 83970; 84443; 84484; 85025; 87651; 93005; 99285; A4649; Q9967

== ENCOUNTER → 2024-09-19 | Outpatient (CLI) | payer MEDICAID, SELFPAY | END | disposition home or self-care (01) | PROVIDERS: PCP Obstetrics & Gynecology; Referring Provider Obstetrics & Gynecology; Visit Provider Obstetrics & Gynecology | DX: Z53.8 Procedure and treatment not carried out for other reasons (principal) ==

== ENCOUNTER → 2024-09-19 | Outpatient (CLI) | payer MEDICAID, SELFPAY ==
[2024-09-19 17:56] LABS: HCG Qualitative,Urine Negative
== END | disposition home or self-care (01) ==
PROVIDERS: Referring Provider Radiology Diagnostic Radiology; Visit Provider Radiology Diagnostic Radiology
DX: Z32.00 Encounter for pregnancy test, result unknown (principal)
CPT/HCPCS: 81025

== ENCOUNTER 2025-02-05 13:38 | Emergency (ER) | payer MEDICAID, SELFPAY ==
[2025-02-05 13:51] VITALS: BP 131/83; PULSE 90; RESP 18; TEMP 37.1; O2SAT 98; BMI 46.6
--- NOTE | 2025-02-05 14:00 | EKG_ITS ---
[facility] Test Date: 2025-02-05 Pat Name: OSVALDO MANNING Department: Room: - Gender: Female [employer] Developer: : 2000 Requested By: Mohamud Abrams (SANDRA) Order Number: [id number] Reading MD: Mohamud Abrams (BUSINESS TEST ANALYST) Measurements Intervals [place] Rate: 79 P: 44 NE: 131 QRS: 16 QRSD: 94 T: 15 QT: 379 QTc: 436 Interpretive Statements SINUS RHYTHM Compared to ECG 09/19/2024 19:01:31 No significant changes /store/S0/[id number].pdf
--- NOTE | 2025-02-05 14:00 | PD.EDRME ---
Rapid Medical Screening Exam RME Arrival date/time: 02/05/25 13:38 24-year-old female with history of iron deficiency anemia presents to the emergency department today for complaints of low iron Chief Complaint: Recheck/Abnormal Lab/Rx Vital signs: Vital Signs Temperature 98.8 F 02/05/25 13:51 Pulse Rate 90 02/05/25 13:51 Respiratory Rate 18 02/05/25 13:51 Blood Pressure 131/83 H 02/05/25 13:51 Pulse Oximetry (%) 98 02/05/25 13:51 Oxygen Delivery Method Room Air 02/05/25 13:51
[2025-02-05 14:46] LABS: Basophils % (Auto) 1 % (0-2.5); Eosinophils # (Auto) 0.2 Thou/mm3 (0.0-0.5); Eosinophils % (Auto) 4 % (0-10); Hematocrit 29.8 % (36.0-46.0); Hemoglobin 9.4 g/dL (12.0-16.0); Immature Granulocytes % (Auto) 0 % (0-0); Immature Granulocytes Auto 0.02 Thou/mm3 (0.00-0.00); Lymphocytes # (Auto) 1.5 Thou/mm3 (1.0-4.8); Lymphocytes % (Auto) 26 % (10-50); Mean Corpuscular HGB Conc 31.5 g/dl (31.0-37.0); Mean Corpuscular Hemoglobin 24.4 pg (25.0-35.0); Mean Corpuscular Volume 77 fL (80-100); Monocytes # (Auto) 0.4 Thou/mm3 (0.0-0.8); Monocytes % (Auto) 6 % (0-12); Neutrophils # (Auto) 3.6 Thou/mm3 (1.8-7.7); Neutrophils % (Auto) 63 % (37-80); Nucleated Red Blood Cell % 0 /100 WBC (0); Platelet Count 225 Thou/mm3 (140-440); RDW Standard Deviation 41.3 fL (36.4-46.3); Red Blood Count 3.85 Miln/mm3 (4.00-5.20); White Blood Count 5.7 Thou/mm3 (3.6-11.0)
[2025-02-05 15:06] LABS: HCG,Qualitative Serum Negative
[2025-02-05 15:07] LABS: Ferritin 5 ng/mL (7.3-270.7); Iron 12 mcg/dL (50-170); Percent Iron Saturation 3 % (20-55); Total Iron Binding Capacity 358 mcg/dL (250-425); Unsaturated Iron Binding 346 (225-295)
[2025-02-05 15:08] LABS: Alanine Aminotransferase 15 U/L (10-49); Albumin, Serum 4.4 gm/dL (3.5-5.0); Albumin/Globulin Ratio 1.8 (1.2-2.2); Alkaline Phosphatase 63 U/L (46-116); Anion Gap 8 (7-16); Aspartate Amino Transferase 22 U/L (0-34); BUN/Creatinine Ratio 21 Ratio (12-20); Bilirubin,Total 0.2 mg/dL (0.3-1.2); Blood Urea Nitrogen 17 mg/dL (9-23); Calcium 8.8 mg/dL (8.3-10.6); Calcium (Corrected) 8.8 mg/dL (8.5-10.1); Carbon Dioxide 27.9 mMol/L (20.0-31.0); Chloride 103 mMol/L (98-107); Creatinine (Component) 0.8 mg/dL (0.6-1.3); Estimated Creatinine Clearance 123.6 mL/min (>60); Globulin 2.4 gm/dL (2.3-3.5); Glucose 90 mg/dL (74-106); Osmolality,Calculated 279 (275-295); Potassium 4.6 mMol/L (3.4-5.1); Sodium 139 mMol/L (136-145); Total Protein 6.8 gm/dL (5.7-8.2); Troponin I < 0.002 ng/mL (0.0-0.045); eGFR > 60 See Note
[2025-02-05 15:10] LABS: Collection Type, Urine Clean Catch
[2025-02-05 15:12] LABS: Partial Thromboplastin Time 28.9 Seconds (22.0-36.0); Prothrombin Time 11.4 Seconds (9.0-12.2)
[2025-02-05 15:17] LABS: Bilirubin,Urine Negative (Negative); Blood,Urine Negative (Negative); Clarity,Urine Clear (Clear/Hazy); Color,Urine Lt-Yellow (Lt Yel-Yel); Culture Indicated,Urine Not Indicated; Glucose, Urine Negative (Negative); Ketones,Urine Negative (Negative); Leukocyte Esterase,Urine Negative (Negative); Nitrite,Urine Negative (Negative); PH,Urine 6.5 (5.0-7.0); Protein,Urine Negative (Neg - Trace); RBC,Urine 5 /hpf (0-3); Specific Gravity,Urine 1.026 (1.001-1.035); Squamous Epithelial Cell,Urine 2 /hpf (0-5); Urobilinogen,Urine Negative mg/dL (0.0-1.0); WBC,Urine 1 /hpf (0-5)
[2025-02-05 17:40] VITALS: BP 133/85; PULSE 73; RESP 18; TEMP 36.7; O2SAT 99
--- NOTE | 2025-02-05 17:42 | PD.EDRECHK ---
ED Recheck Abnl Lab Rx-RME/HPI General Chief Complaint: Recheck/Abnormal Lab/Rx Stated Complaint: Low iron level, dizzy syncope Time Seen by Provider: 02/05/25 17:41 Arrival date/time: 02/05/25 13:38 RME / HPI RME / HPI narrative: 24-year-old female with history of iron deficiency anemia presents to the emergency department today for complaints of low iron . Patient has been having low iron for a while, pending to be seen by body builder apprentice. Today patient is concerned because he felt dizzy, severity mild. Denies any syncope. Denies any other complaints patient is ambulatory. She has a history of von Willebrand disease. Related Data Home Medications ?Medication ?Instructions ?Recorded ?Confirmed amitriptyline 25 mg tablet 25 mg PO HS 01/31/24 01/31/24 Held on 01/31/24. Instructions: Resume on 02/01/24. cyclobenzaprine 5 mg tablet 5 mg PO TID 01/31/24 01/31/24 Held on 01/31/24. Instructions: Resume on 02/01/24. furosemide 40 mg tablet 40 mg PO QDAY 01/31/24 01/31/24 gabapentin 300 mg capsule 300 mg PO BID 01/31/24 01/31/24 Held on 01/31/24. Instructions: Resume on 02/01/24. hydroxyzine HCl 25 mg tablet 25 mg PO TID 01/31/24 01/31/24 lamotrigine 25 mg tablet,extended 25 mg PO HS 01/31/24 01/31/24 release 24 hr meloxicam 15 mg tablet 15 mg PO QDAY 01/31/24 01/31/24 ondansetron HCl 8 mg tablet 8 mg PO QID 01/31/24 01/31/24 pantoprazole 40 mg tablet,delayed 40 mg PO QDAY 01/31/24 01/31/24 release (Protonix) tranexamic acid 650 mg tablet 1,300 mg PO TID 01/31/24 01/31/24 Previous Rx's ?Medication ?Instructions ?Recorded methotrexate (PF) 30 mg/0.6 mL 94 mg (1.88 mL) subcut .once #1.88 05/02/24 subcutaneous auto-injector mL methotrexate sodium 25 mg/mL 94 mg (3.76 mL) subcut .once #10 mL 05/02/24 injection solution methotrexate sodium 25 mg/mL 94 mg (3.76 mL) subcut .once #3.76 05/03/24 injection solution mL Allergies Allergy/AdvReac Type Severity Reaction Status Date / Time Gadolinium-Containing Allergy Severe Itching Verified 02/05/25 13:46 Contrast Medi adhesive tape Allergy Intermediate REDNESS, Verified 02/05/25 13:46 ITCHING, SKIN BLISTERS latex Allergy Intermediate REDNESS,ITCHING,THROAT Verified 02/05/25 13:46 SWELLING,DIFF. BREATHING Penicillins Allergy Unknown Verified 02/05/25 13:46 Sulfa (Sulfonamide Allergy Swelling Verified 02/05/25 13:46 Antibiotics) of Lip/Tongue/Throat Flu shot Allergy Uncoded 02/05/25 13:46 Review of Systems Review of Systems Narrative Review of Systems: Review of system reviewed and within normal limits except mentioned in HPI ED Exam Narrative Physical exam: VITAL SIGNS: Reviewed. GENERAL APPEARANCE: Alert and interactive, follows commands, no acute distress, HEAD AND FACE: Non-traumatic. ENT: PERRL, pale conjunctiva, eyelid no trauma, Mucous membrane moist. NECK: Supple, nontender, no nuchal rigidity. CHEST: No tenderness, no crepitus, no paradoxical movement, no retractions. LUNGS: Clear, well ventilated, symmetric, no rales, no wheezing, no ronchi, no stridor, good breath sounds bilaterally. HEART: Regular rate, regular rhythm, no murmur, no gallops. ABDOMEN: Soft, positive bowel sounds, nondistended, no guarding, nontender, no rebound, no masses, RECTAL: Deferred. GENITAL: Deferred. NEUROLOGICAL: Gross motor function intact sensory function intact, Appropriate for age. MUSCULOSKELETAL: low back nontender, full range of motion. EXTREMITIES: Nontender, full range of motion. SKIN: Color pale, dry, no rash, no lacerations, no abrasions, no contusions. LYMPHATICS: Deferred. Course Quality Measures none Orders Category Date Time Status EKG (ED ONLY) *Do not use* NOW Care 02/05/25 14:00 Completed EKG (ED Only) Stat Exams 02/05/25 14:00 Draft CBC Stat Lab 02/05/25 14:26 Completed Comprehensive Metabolic Panel Stat Lab 02/05/25 14:26 Completed Ferritin Stat Lab 02/05/25 14:26 Completed HCG,Qualitative Serum Stat Lab 02/05/25 14:26 Completed Iron Panel Stat Lab 02/05/25 14:26 Completed Partial Thromboplastin Time Stat Lab 02/05/25 14:26 Completed Prothrombin Time with INR Stat Lab 02/05/25 14:26 Completed Troponin I Stat Lab 02/05/25 14:26 Completed Type and Screen Stat Lab 02/05/25 14:26 Completed UA, C/S IF [Urinalysis, C/S if Indicated] Stat Lab 02/05/25 15:01 Completed Ferric Sod Gluc Inj [Ferrlecit Inj] 125 mg Med 02/05/25 17:23 Discontinued Sodium Chloride 0.9% [Ns] 100 ml IV X1 Vital Signs Vital signs: Vital Signs Temperature 98.8 F 02/05/25 13:51 Pulse Rate 90 02/05/25 13:51 Respiratory Rate 18 02/05/25 13:51 Blood Pressure 131/83 H 02/05/25 13:51 Pulse Oximetry (%) 98 02/05/25 13:51 Oxygen Delivery Method Room Air 02/05/25 13:51 Recheck / Abnormal Lab / Rx MDM Narrative MDM Narrative:: 24-year-old female with history of iron deficiency anemia presents to the emergency department today for complaints of low iron . Patient has been having low iron for a while, pending to be seen by body builder apprentice. Today patient is concerned because he felt dizzy, severity mild. Denies any syncope. Denies any other complaints patient is ambulatory. She has a history of von Willebrand disease. Patient is denying any active bleeding right now. Patient's hemoglobin was noted to be 9.4, hematocrit of 29.8. Iron was noted to be 12 iron saturation of 30 Plan of care discussed with her regarding possible iron infusion however patient is adamant to receive it because she never received visit in the past, and she had very sensitive to iron, she is allergic to ferrous sulfate not requiring epinephrine. Patient is planning to just wait with her body builder apprentice. Currently patient is ambulatory. Unaided. Patient data External records reviewed:: None Clinical information provided by:: patient Social determinants that could affect healthcare access:: none Patient has the following chronic illnesses:: Von Willebrand disease How is presenting disease/condition affected by chronic disease/condition?: exacerbated by Evaluation data The following diagnostics were reviewed and interpreted by me:: lab results Lab and/or radiology exams considered but not ordered:: None Interpretation Summary: See results in MDM EKG showed normal sinus rhythm, ventricular rate of 79 bpm, no ST segment elevation or depression noted. Medications / Prescriptions Medications or Prescriptions considered but not ordered:: none Medication administrations:: Medication Administration History Discontinued Medications Ferric Sodium Gluconate 125 mg (/ Sodium Chloride) 110 mls @ 110 mls/hr IV X1 ONE Stop: 02/05/25 17:24 Last Admin: 02/05/25 17:42 Dose: Not Given Documented By: Non-Admin Reason: Cancelled by Provider None Consultations Consultation(s) initiated? (list below): No Diagnosis Recheck Differential Diagnosis: other (Anemia, dizziness) Most likely diagnosis given after review of the tests above:: Anemia, dizziness Admission Indicated Admission indicated?: not indicated Admission Request Was there a request for admission?: No Disposition Plan Disposition Plan: Discharge Discharge Attestation Discharge Attestation: The patient and all family members were given an opportunity to ask questions and understood the discharge instructions. Discharge instructions specifically effects, indications for sooner follow up or return to the emergency department, and the expected course of current diagnosis. Patient condition: Stable Discharge Plan Plan Patient Disposition: HOME (Self Care) Discharge Disposition comment: Stable Prescriptions/Referrals Prescriptions/Med Rec: No Action furosemide 40 mg tablet 40 mg PO QDAY Patient Comments: TAKE 1 TABLET BY MOUTH ONCE DAILY meloxicam 15 mg tablet 15 mg PO QDAY Patient Comments: TAKE 1 TABLET BY MOUTH ONCE DAILY NEEDED FOR PAIN (ALSO TAKE DURING YOUR PERIOD TO MAKE IT [employer]) amitriptyline 25 mg tablet 25 mg PO HS Patient Comments: TAKE 1 TABLET BY MOUTH ONCE DAILY gabapentin 300 mg capsule 300 mg PO BID Patient Comments: TAKE 1 CAPSULE BY MOUTH IN THE MORNING ,1 CAPSULE AT NOON, AND 2 CAPSULES AT BEDTIME hydroxyzine HCl 25 mg tablet 25 mg PO TID Patient Comments: TAKE 1 TABLET BY MOUTH THREE TIMES DAILY NEEDED FOR ITCHING OR SLEEPING DIFFICULTIES cyclobenzaprine 5 mg tablet 5 mg PO TID Patient Comments: TAKE 1 TO 2 TABLETS BY MOUTH THREE TIMES DAILY NEEDED FOR MUSCLE RELAXATION lamotrigine 25 mg tablet extended release 24hr 25 mg PO HS Patient Comments: TAKE 1 TABLET BY MOUTH ONCE DAILY tranexamic acid 650 mg Tablet 1,300 mg PO TID pantoprazole [Protonix] 40 mg tablet,delayed release (DR/EC) 40 mg PO QDAY ondansetron HCl 8 mg Tablet 8 mg PO QID methotrexate (PF) 30 mg/0.6 mL auto-injector 94 mg subcut .once Qty: 1.88 0RF Rx Instructions: pls give IM methotrexate sodium 25 mg/mL solution 94 mg subcut .once Qty: 10 0RF Rx Instructions: Give IM methotrexate sodium 25 mg/mL solution 94 mg subcut .once Qty: 3.76 0RF Rx Instructions: pls give IM Referrals: Alivia Geller FNP-C [Primary Care Provider] - In 1 week Problem List Clinical Impression: Anemia Patient/Caregiver Discharge Instructions Discharge Activity: activity as tolerated Education Materials: Anemia Additional Instructions: Thank you for the opportunity for serving you today. You are stable for discharged . You are advised to: Follow-up with your PCP in 1 to 2 days Return to ED for worsening of symptoms Increase oral fluids Increase intake of red meat, increase green leafy vegetables intake Follow-up with your body builder apprentice as instructed. Print Language: Northern Irish Stand Alone Forms: [employer] Award Info., Patient Portal Info Letter PA/LICENSED DISPENSING OPTICIAN Supervising Physician PA/LICENSED DISPENSING OPTICIAN Supervising Physician: Benjamin=MD Bowen
== END 2025-02-05 17:58 | disposition home or self-care (01) ==
PROVIDERS: Nurse Practitioner Primary Care; Emergency Provider Emergency Medicine
DX: D50.9 Iron deficiency anemia, unspecified (principal); D68.00 Von Willebrand disease, unspecified; R42 Dizziness and giddiness
CPT/HCPCS: 36415; 80053; 81001; 82728; 83540; 83550; 84484; 84703; 85025; 85610; 85730; 86850; 86900; 86901; 93005; 99283

== ENCOUNTER → 2025-03-14 | Outpatient (CLI) | payer MEDICAID, SELFPAY ==
--- NOTE | 2025-03-14 | XR_ITS ---
EXAMINATION: Cervical spine, 5 views Technique: Cervical spine AP, AP odontoid, lateral, bilateral obliques, 5 views Exam date and time: March 14, 2025 1221 hours INDICATIONS: Neck pain several years. FINDINGS: Straightening normal cervical lordosis No cervical fracture Mild bilateral neural foraminal stenosis C3-C4 Intact odontoid IMPRESSION: No cervical fracture No significant cervical disc narrowing
--- NOTE | 2025-03-14 | XR_ITS ---
Examination: Shoulder,left, 3 views Technique: Shoulder AP internal rotation, AP external rotation, Y view shoulder, 3 views Exam date and time :March 14, 2025 1221 hours INDICATIONS: History shoulder dislocation 2 weeks ago. FINDINGS: No shoulder fracture No current shoulder dislocation No AC joint separation IMPRESSION: No shoulder fracture or dislocation
== END | disposition home or self-care (01) ==
LOC: CDIM 11:41
DX: M54.2 Cervicalgia (principal); M25.512 Pain in left shoulder
CPT/HCPCS: 72050; 73030

== ENCOUNTER → 2025-05-19 | Outpatient (CLI) | payer MEDICAID, SELFPAY ==
--- NOTE | 2025-05-19 15:24 | XR_ITS ---
Examination: Lumbar spine 3 views Technique one AP lateral coned lateral lower lumbar spine 3 views Date and time: May 19, 2025, 1535 hours INDICATIONS: Back pain beginning age 10 after falling FINDINGS: Satisfactory alignment lumbar vertebral bodies No lumbar fracture Mild to moderate disc narrowing L5-S1 IMPRESSION: No lumbar fracture Mild to moderate disc narrowing L5-S1
== END | disposition home or self-care (01) ==
PROVIDERS: PCP Internal Medicine; Referring Provider Internal Medicine; Visit Provider Internal Medicine
DX: M48.07 Spinal stenosis, lumbosacral region (principal)
CPT/HCPCS: 72100